=== PATIENT | female | born 1935 | race Caucasian/White ===

== ENCOUNTER 2020-03-17 06:11 | Day surgery (SDC) | payer MEDICARE, OTHER ==
[2020-03-13 11:25] VITALS: BMI 25.2
[2020-03-17] MEDS ORDERED: Cyclopentolate 1% Opth Drop 2 ML BOT ONE (06:29)
[2020-03-17] MEDS ORDERED: Phenylephrine 2.5% Ophth Soln 5 ML BOT ONE (06:29)
[2020-03-17] MEDS ORDERED: EPINEPHrine 0.3 MG in Ophthalmic Irrigation Solution 500 ML IRR SCH (06:58)
[2020-03-17] MEDS ORDERED: PROPOFOL 20 ML ONE (08:31)
[2020-03-17] MEDS ORDERED: Midazolam HCl 2 mg/2 ml Vial ONE (08:31)
[2020-03-17] MEDS ORDERED: Fentanyl 100 MCG/2 ML VIAL ONE (08:31)
[2020-03-17] MEDS ORDERED: CEFAZOLIN 1 GM VIAL ONE (11:54)
[2020-03-17] MEDS ORDERED: Bupivacaine PF 0.75% SDV 10 ML ONE (11:54)
[2020-03-17] MEDS ORDERED: Lidocaine 4% PF 5 ML AMP ONE (11:54)
[2020-03-17] MEDS ORDERED: Tobramycin/Dexamethasone Ophth Oint 3.5 GM TUBE ONE (11:54)
[2020-03-17] MEDS ORDERED: Triamcinolone 40 MG/ML VIAL ONE (11:54)
[2020-03-17] MEDS ORDERED: Lidocaine 1% PF 5 ML VIAL ONE (11:54)
--- NOTE | 2020-03-17 15:55 | OP ---
DATE OF PROCEDURE: 03/17/2020 PRINCIPAL PREOPERATIVE DIAGNOSIS: Rhegmatogenous retinal detachment, right eye. POSTOPERATIVE DIAGNOSIS: Rhegmatogenous retinal detachment, right eye. NAME OF PROCEDURES PERFORMED: 1. 25-gauge pars plana vitrectomy, right eye. 2. Rhegmatogenous retinal detachment repair, right eye. 3. Endolaser, right eye. 4. Silicone oil fill, right eye. ESTIMATED BLOOD LOSS: None. SPECIMENS REMOVED: None. COMPLICATIONS: None. ANESTHESIA: MAC with subtenon's block. SUMMARY OF OPERATION: The patient was identified in the preoperative holding area. The correct eye being the right eye was marked for surgery. The patient was taken to the operating room, where MAC anesthesia was induced. The right eye was prepped and draped in usual sterile ophthalmic fashion for surgery. A wire clip lid speculum was placed. An inferonasal conjunctival peritomy was fashioned with the Devika scissors for administration of a subtenon's block. The block consisted of 1:1 ratio of 4% lidocaine, 0.75% Marcaine. A total of 5 mL was administered. A standard 25-gauge pars plana vitrectomy platform was fashioned with trocars placed approximately 3.5 mm from the limbus. The infusion was noted to be within the vitreous cavity prior to being turned on to infusion pressure of 30 mmHg. A light pipe microvitrector was introduced in the eye under visualization of the BIOM viewing system. A macula-off rhegmatogenous retinal detachment was noted from approximately 2 o'clock to 10 o'clock. The macula was noted to be detached. A careful core and peripheral shave vitrectomy were performed with the assistance of scleral depression. No defects were noted despite careful repeat examination with scleral depression. The decision was made to create a superotemporal drainage retinotomy site with the use of Endo-cautery followed by opening with a flute needle. An air-fluid exchange was subsequently performed, which allowed for complete flattening of the retina. Endolaser was used to provide barricade around the retinotomy site as well as providing cerclage in typical fashion with great care to laser the superior areas of the retinal detachment where a defect would be most likely to be present. Following completion of laser, the flute needle was reintroduced in the eye to remove the residual subretinal fluid. A complete silicone oil fill was subsequently achieved. The cannulas were sequentially removed and all sclerotomies were noted to be overall sutured with an 8-0 Vicryl suture. Following suturing, all sclerotomies were noted to be oil tight. Subconjunctival Ancef and Kenalog were injected. The wire clip lid speculum was removed followed by application of TobraDex ophthalmic ointment and a light patch and shield. The patient tolerated the procedure well and was taken to the outpatient recovery area in good condition. Job ID: [id number] [facility]
== END 2020-03-17 10:30 | disposition home or self-care (01) ==
LOC: EDBD → SDC 06:11
PROVIDERS: ATTEND Ophthalmology Retina Specialist
PROC: 08T43ZZ Resection of Right Vitreous, Percutaneous Approach (ICD-10-PCS; principal; 2020-03-17)
PROC: 08QE3ZZ Repair Right Retina, Percutaneous Approach (ICD-10-PCS; 2020-03-17)
DX: H33.001 Unspecified retinal detachment with retinal break, right eye (principal); Z79.1 Long term (current) use of non-steroidal anti-inflammatories (NSAID); Z79.82 Long term (current) use of aspirin; Z79.84 Long term (current) use of oral hypoglycemic drugs; Z79.899 Other long term (current) drug therapy; Z88.5 Allergy status to narcotic agent
CPT/HCPCS: 67108; C1814; J0171; J0690; J2001; J2250; J2704; J3010; J3301; J3490

== ENCOUNTER 2020-07-04 06:25 | Outpatient (CLI) | payer MEDICARE, OTHER ==
[2020-03-13 17:38] LABS: SARS-CoV-2 MS2 Positive; SARS-CoV-2 N Gene Negative; SARS-CoV-2 S Gene Negative; SARS-CoV-2 by NAA Not Detected (NotDetected); SARS-CoV-2 orf1ab Negative
[2020-07-05 14:47] LABS: SARS-CoV-2 MS2 Positive; SARS-CoV-2 N Gene Negative; SARS-CoV-2 S Gene Negative; SARS-CoV-2 by NAA Not Detected (NotDetected); SARS-CoV-2 orf1ab Negative
== END 2020-07-04 06:26 | disposition home or self-care (01) ==
LOC: EDBD → LABBT 06:25
PROVIDERS: ATTEND Ophthalmology Retina Specialist
DX: Z20.828 Contact with and (suspected) exposure to other viral communicable diseases (principal); Z98.890 Other specified postprocedural states
CPT/HCPCS: U0003 ×2; 87635

== ENCOUNTER 2020-07-08 07:37 | Day surgery (SDC) | payer MEDICARE, OTHER ==
[2020-07-07 12:54] VITALS: BMI 26.5
[~2020-07-08 07:37] MED LIST: EPINEPHrine 0.3 MG in Ophthalmic Irrigation Solution 500 ML IRR SCH; Fentanyl 100 MCG/2 ML VIAL ONE; Midazolam HCl 2 mg/2 ml Vial ONE
[2020-07-08] MEDS ORDERED: Phenylephrine 2.5% Ophth Soln 5 ML BOT FS SCH (08:00)
[2020-07-08] MEDS ORDERED: Phenylephrine 2.5% Ophth Soln 5 ML BOT ONE (08:00)
[2020-07-08] MEDS ORDERED: Cyclopentolate 1% Opth Drop 2 ML BOT ONE (08:00)
[2020-07-08] MEDS ORDERED: Cyclopentolate 1% Opth Drop 2 ML BOT FS SCH (08:00)
--- NOTE | 2020-07-08 12:31 | OP ---
DATE OF PROCEDURE: 07/08/2020 PRINCIPAL PREOPERATIVE DIAGNOSIS: Silicone oil, status post retinal detachment repair, right eye. POSTOPERATIVE DIAGNOSIS: Silicone oil, status post retinal detachment repair, right eye. PROCEDURES PERFORMED: 1. 25-gauge pars plana vitrectomy, right eye. 2. Silicone oil removal, right eye. ESTIMATED BLOOD LOSS: None. SPECIMENS REMOVED: None. COMPLICATIONS: None. ANESTHESIA: MAC with sub-Tenon's block. DESCRIPTION OF PROCEDURE: The patient was identified in the preoperative holding area, where the correct eye being the right eye was marked for surgery. The patient was taken to the operating room, where MAC anesthesia was induced. The right eye was prepped and draped in the usual sterile ophthalmic fashion for surgery. A wire-clip lid speculum was placed. An inferonasal conjunctival peritomy was fashioned with Devika scissors for administration of sub-Tenon's block. The block consisted of 1:1 ratio of 4% lidocaine and 0.75% Marcaine. A total of 5 mL was administered. A standard 25-gauge pars plana vitrectomy platform was fashioned with trocars placed approximately 3.5 mm from the limbus. The infusion was noted to be within the vitreous cavity prior to being turned on to an infusion pressure of 40 mmHg. The silicone oil extrusion device was inserted in the eye to remove the majority of silicone oil. Subsequently, the light pipe and flute needle were re-introduced in the eye under visualization of the BIOM viewing system. The retina was noted to be flat and attached with good peripheral laser. The three sequential air-fluid exchanges were performed to remove any residual silicone oil. A 360-degree scleral depressed exam of the periphery was performed, which revealed no additional defects. The cannulas were sequentially removed with suturing required of the superotemporal sclerotomy with 8-0 Vicryl suture. Following suturing, all sclerotomies were noted to be watertight. Subconjunctival Kenalog and Ancef were injected. The wire-clip lid speculum was removed followed by application of TobraDex ophthalmic ointment and light patch and shield. The patient tolerated the procedure well and was taken to the outpatient recovery area in good condition. Job ID: [id number]
[2020-07-08] MEDS ORDERED: Lidocaine 1% PF 5 ML VIAL ONE (14:07)
[2020-07-08] MEDS ORDERED: Maxitrol 0.1% Opth Oint 3.5 GM TUBE ONE (14:07)
[2020-07-08] MEDS ORDERED: Bupivacaine PF 0.75% SDV 10 ML ONE (14:07)
[2020-07-08] MEDS ORDERED: Lidocaine 4% PF 5 ML AMP ONE (14:07)
[2020-07-08] MEDS ORDERED: PROPOFOL 200 MG/20 ML VIAL ONE (14:07)
[2020-07-08] MEDS ORDERED: CEFAZOLIN 1 GM VIAL ONE (14:07)
[2020-07-08] MEDS ORDERED: Triamcinolone 40 MG/ML VIAL ONE (14:07)
== END 2020-07-08 10:49 | disposition home or self-care (01) ==
LOC: SDC 07:37 → EDBD 12:30
PROVIDERS: ATTEND Ophthalmology Retina Specialist
PROC: 08T43ZZ Resection of Right Vitreous, Percutaneous Approach (ICD-10-PCS; principal; 2020-07-08)
PROC: 08943ZZ Drainage of Right Vitreous, Percutaneous Approach (ICD-10-PCS; 2020-07-08)
DX: H43.391 Other vitreous opacities, right eye (principal); Z79.1 Long term (current) use of non-steroidal anti-inflammatories (NSAID); Z79.82 Long term (current) use of aspirin; Z79.83 Long term (current) use of bisphosphonates; Z79.84 Long term (current) use of oral hypoglycemic drugs; Z79.899 Other long term (current) drug therapy; Z88.5 Allergy status to narcotic agent
CPT/HCPCS: J0171; J0690; J2001; J2250; J2704; J3010; J3301; J3490

== ENCOUNTER 2021-03-20 14:51 | Day surgery (SDC) | payer MEDICARE, OTHER ==
[2021-03-20] MEDS ORDERED: Phenylephrine 2.5% Ophth Soln 5 ML BOT ONE (15:48)
[2021-03-20] MEDS ORDERED: Cyclopentolate 1% Opth Drop 2 ML BOT ONE (15:48)
[2021-03-20 16:03] LABS: SARS-CoV-2 NAA Rapid Test Not Detected (NotDetected)
[2021-03-20] MEDS ORDERED: Phenylephrine 2.5% Ophth Soln 5 ML BOT FS SCH (16:15)
[2021-03-20] MEDS ORDERED: Cyclopentolate 1% Opth Drop 2 ML BOT FS SCH (16:15)
[2021-03-20] MEDS ORDERED: EPINEPHrine 0.3 MG in Ophthalmic Irrigation Solution 500 ML IRR SCH (16:15)
[2021-03-20] MEDS ORDERED: Fentanyl 100 MCG/2 ML VIAL ONE (16:28)
[2021-03-20] MEDS ORDERED: Midazolam HCl 2 mg/2 ml Vial ONE (17:03)
[2021-03-20] MEDS ORDERED: PROPOFOL 200 MG/20 ML VIAL ONE (17:13)
[2021-03-20] MEDS ORDERED: Bupivacaine PF 0.75% SDV 10 ML ONE (17:13)
[2021-03-20] MEDS ORDERED: Lidocaine 4% PF 5 ML AMP ONE (17:13)
[2021-03-20] MEDS ORDERED: CEFAZOLIN 1 GM VIAL ONE (17:13)
[2021-03-20] MEDS ORDERED: Maxitrol 0.1% Opth Oint 3.5 GM TUBE ONE (17:13)
[2021-03-20] MEDS ORDERED: Triamcinolone 40 MG/ML VIAL ONE (17:13)
[2021-03-20] MEDS ORDERED: Lidocaine 1% PF 5 ML VIAL ONE (17:13)
== END 2021-03-20 19:05 | disposition home or self-care (01) ==
LOC: SDC 14:51
PROVIDERS: ATTEND Ophthalmology Retina Specialist
PROC: 08T53ZZ Resection of Left Vitreous, Percutaneous Approach (ICD-10-PCS; principal; 2021-03-20)
PROC: 08QF3ZZ Repair Left Retina, Percutaneous Approach (ICD-10-PCS; 2021-03-20)
DX: H33.012 Retinal detachment with single break, left eye (principal); Z88.5 Allergy status to narcotic agent; Z20.822 Contact with and (suspected) exposure to COVID-19
CPT/HCPCS: 67025; 67108; U0002; U0005; 36416; J0171; J0690; J2250; J2704; J3010; J3301; J3490